=== PATIENT | male | born 1955 | race Hispanic/Latino ===

== ENCOUNTER 2024-09-21 02:17 | Emergency (ER) | payer BC, MEDICARE ==
[~2024-09-21] VITALS: Ht 170.2 cm; Wt 88.0 kg
[2024-09-21] MEDS: HYDRALAZINE HCL 20 MG/ML VIAL IV STA (02:51)
[2024-09-21 03:35] VITALS: PULSE 61; RESP 16; TEMP 97.9
[2024-09-21] MEDS ORDERED: HYDROCHLOROTHIA25 MG PO (03:48)
[2024-09-21] MEDS: HYDROCODONE/APAP 5MG-325MG TAB PO ONE (03:56)
[2024-09-21 04:19] VITALS: BP 173/81; PULSE 61; RESP 16; TEMP 97.9; O2SAT 98
== END 2024-09-21 04:00 | disposition home or self-care (01) ==
LOC: FSED 02:22
DX: I10 Essential (primary) hypertension (principal); R51.9 Headache, unspecified; E11.65 Type 2 diabetes mellitus with hyperglycemia
CPT/HCPCS: 80053; 84484; 85025; 96374; 99284; J0360; 80076